=== PATIENT | female | born 1975 | race Asian ===

== ENCOUNTER 2023-05-02 08:32 | Day surgery (SDC) | payer OTHER ==
[~2023-05-02] VITALS: Ht 149.9 cm; Wt 58.1 kg
[~2023-05-02 08:32] MED LIST: ASPI-524; PREN-187 PO; PROC25SU2 RC; THYROID
[2023-05-02 10:20] LABS: HCG,QUAL RESULT NEGATIVE (NEGATIVE)
[2023-05-02] MEDS ORDERED: ONDANSETRON HCL 4 MG/2 ML VIAL ONE (10:46)
[2023-05-02] MEDS ORDERED: DIPHENHYDRAMINE INJ 50 MG/ML VIAL ONE (10:46)
[2023-05-02] MEDS ORDERED: fentaNYL CITRATE/PF 100 MCG/2 ML AMP ONE (10:46)
[2023-05-02] MEDS: MIDAZOLAM HCL 5 MG/5 ML VIAL ONE ×2 (10:52→10:54)
[2023-05-02 13:34] VITALS: O2SAT 100
[2023-05-02 15:53] VITALS: BP_SYST 113; PULSE 71; RESP 16
== END 2023-05-02 11:42 | disposition home or self-care (01) ==
LOC: SDS 08:32 → SMU 08:34 → SDS 11:42
PROVIDERS: ATTEND Internal Medicine
DX: M51.16 Intervertebral disc disorders with radiculopathy, lumbar region (principal); M51.9 Unspecified thoracic, thoracolumbar and lumbosacral intervertebral disc disorder; M53.3 Sacrococcygeal disorders, not elsewhere classified; M79.10 Myalgia, unspecified site; E03.9 Hypothyroidism, unspecified; Z79.899 Other long term (current) drug therapy
CPT/HCPCS: 62323; 84703; J2250; J3010; 76000; J1200; J2405

== ENCOUNTER 2023-06-27 10:08 | Day surgery (SDC) | payer OTHER ==
[~2023-06-27] VITALS: Ht 149.9 cm; Wt 58.1 kg
[~2023-06-27 10:08] MED LIST changes: +LIDOCAINE 2%, 20 ML MDV ONE; +NORMAL SALINE 10 ML VIAL ONE; +iopamidoL 50 ML VIAL IV ONE; +methylPREDNISolone ACETATE 40 MG/ML ONE
[2023-06-27 11:32] LABS: HCG,QUAL RESULT NEGATIVE (NEGATIVE)
[2023-06-27] MEDS: fentaNYL CITRATE/PF 100 MCG/2 ML AMP ONE (12:21)
[2023-06-27] MEDS: MIDAZOLAM HCL 5 MG/5 ML VIAL ONE (12:22)
[2023-06-27 13:18] VITALS: O2SAT 100
[2023-06-27 17:38] VITALS: BP_SYST 113; PULSE 65; RESP 20
== END 2023-06-27 13:53 | disposition home or self-care (01) ==
LOC: SDS 10:08 → SMU 10:10 → SDS 13:53
PROVIDERS: ATTEND Internal Medicine
DX: M51.16 Intervertebral disc disorders with radiculopathy, lumbar region (principal); M51.9 Unspecified thoracic, thoracolumbar and lumbosacral intervertebral disc disorder; M53.3 Sacrococcygeal disorders, not elsewhere classified; M79.10 Myalgia, unspecified site; E03.9 Hypothyroidism, unspecified; Z79.890 Hormone replacement therapy; Z79.899 Other long term (current) drug therapy
CPT/HCPCS: 62323; 84703; J1030; J2250; J3010; Q9967; 76000; J2001